=== PATIENT | female | born 1970 | race Caucasian/White ===

== ENCOUNTER 2020-12-11 13:13 | Emergency (ER) | payer SELFPAY ==
[~2020-12-11] VITALS: Ht 162.6 cm; Wt 80.0 kg
[2020-12-11 14:07] LABS: ALANINE AMINOTRANSFERASE 31 U/L (12-78); ANION GAP 5 mmol/L (5-15); CALCIUM 8.2 mg/dL (8.5-10.1); CHLORIDE 106 mmol/L (98-107); CREATININE 0.85 mg/dL (0.55-1.02)
[2020-12-11 14:11] LABS: ALKALINE PHOSPHATASE 64 U/L (45-117); BILIRUBIN,TOTAL 0.2 mg/dL (0.2-1.0); TOTAL PROTEIN 7.6 g/dL (6.4-8.2); TROPONIN I < 0.015 ng/mL (0.000-0.045)
[2020-12-11 14:13] LABS: MEAN CORPUSCULAR HEMOGLOBIN 27.5 pg (27.0-34.8); MEAN CORPUSCULAR HGB CONC 32.9 g/dL (32.4-35.8); MEAN PLATELET VOLUME 8.1 fL (7.4-10.4); PLATELET COUNT 207 x10^3/uL (130-400); RED BLOOD COUNT 5.15 x10^6/uL (3.82-5.3); RED CELL DISTRIBUTION WIDTH 16.5 % (9.6-15.2)
[2020-12-11 14:41] LABS: BAND#(MANUAL) 0.03 x10^3/uL; BANDS%(MANUAL) 1 % (0-7); BASOS#(MANUAL) 0.06 x10^3/uL (0-0.1); BASOS% (MANUAL) 2 % (0-1); LYMPHS% (MANUAL) 25 % (22-44); MONOS#(MANUAL) 0.14 x10^3/uL (0.3-2.7); MONOS% (MANUAL) 5 % (2-9); SEG#(MANUAL) 1.88 x10^3/uL (1.8-6.8); SEGS% (MANUAL) 67 % (42-75)
[2020-12-11 14:43] LABS: <PLATELET ESTIMATE> ADEQUATE; <PLT MORPHOLOGY> NORMAL PLT MORPH; ANISOCYTOSIS 1+
[2020-12-11 16:27] LABS: MICROSCOPIC INDICATED
--- NOTE | 2020-12-11 17:03 | NUR ---
BREAK RN::ALL PT RESULTS BACK. PT UP FOR RECHECK
[2020-12-11] MEDS ORDERED: FOSFOMYCIN 3 GM PACKET ONE (17:28)
[2020-12-11] MEDS ORDERED: FOSFOMYCIN 3 GM PACKET PO ONE (17:30)
[2020-12-11 18:14] VITALS: BP 132/74
== END 2020-12-11 18:16 | disposition home or self-care (01) ==
LOC: ED 17:02
DX: U07.1 COVID-19 (principal); J40 Bronchitis, not specified as acute or chronic; N30.00 Acute cystitis without hematuria
CPT/HCPCS: 36415; 71046; 80053; 81001; 84484; 85025; 87077; 87086; 87186; 93005; 99285